=== PATIENT | female | born 1955 | race Caucasian/White ===

== ENCOUNTER 2018-09-04 10:20 | Outpatient (CLI) | payer MEDICARE | END 2018-09-04 10:21 | disposition home or self-care (01) | LOC: C.VASC 10:20 ==

== ENCOUNTER 2018-09-13 11:54 | Outpatient (CLI) | payer MEDICARE | END 2018-09-13 11:55 | disposition home or self-care (01) | LOC: C.SDS 11:54 → C.PAT 11:55 | DX: N18.6 End stage renal disease (principal) ==